=== PATIENT | male | born 1950 | race Caucasian/White ===

== ENCOUNTER → 2018-12-19 | Outpatient (CLI) | payer MEDICARE ==
[~2018-12-19] MED LIST: DIABETA 5MG5 MG/TAB PO; GLUCOPHAGE1000 MG PO
== END ==
LOC: MC.RAD 10:19
DX: N63.20 Unspecified lump in the left breast, unspecified quadrant (principal); R22.9 Localized swelling, mass and lump, unspecified

== ENCOUNTER → 2021-09-06 | Outpatient (CLI) | payer MEDICARE | LOC: COL.RAD 09:30 | DX: D47.2 Monoclonal gammopathy (principal) ==

== ENCOUNTER → 2021-09-21 | Outpatient (CLI) | payer MEDICARE | LOC: MC.RAD 07:39 | DX: D47.2 Monoclonal gammopathy (principal); R22.31 Localized swelling, mass and lump, right upper limb ==